=== PATIENT | female | born 1995 | race Two or more races ===

== ENCOUNTER 2019-01-07 21:48 | Emergency (ER) | payer OTHER ==
--- NOTE | 2019-01-07 22:12 | PDOC ---
History of Present Illness - General Stated Complaint: 9 WEEKS ,BLEEDING Time Seen by Provider: 01/07/19 22:12 History Source: Patient Exam Limitations: No Limitations - History of Present Illness Initial Comments: 23 year old female with no PMH, 9 weeks by date, A0 presented to ED for vaginal bleeding since yesterday, progressively getting worse today. Pt reported yesterday she had mild pelvic cramping and spotting. She reported that her bleeding and cramping increased today, and she saw passing of clots, prompting her to come to the ED. Pt denied lightheadedness, chest pain, shortness of breath, dysuria. She reported using 3-4 pads today, she soaked through one pad today, but then has been changing them every 3-4 hours, sometimes they are soaked and sometimes they are 1/2 full. OBGYN: Yefri VELAZQUEZ General: denied fever, chills, generalized weakness. HEENT: denied sore throat, rhinorrhea, ear pain. Cardiovascular: denied chest pain, palpitations, syncope, diaphoresis. Respiratory: denied shortness of breath, cough, sputum production, hemoptysis. Gastrointestinal: admitted to abdominal pain. denied nausea, vomiting, diarrhea , constipation, blood in stool. Genitourinary: admitted to vaginal bleeding. denied dysuria, increased urinary frequency, hematuria, urinary incontinence, flank pain. Back: denied back pain. Musculoskeletal: denied joint pain, muscle pain, joint swelling. Neurological: denied headache, dizziness, numbness, tingling, weakness. Integumentary: denied rash, laceration, abrasion. Hematologic/Lymphatic: denied bruising or bleeding. PE Constitutional: Well-nourished, Well-developed, appearing stated age. HEENT: head is normocephalic, atraumatic. EOMI. PERRLA. Neck: supple. Full ROM. Cardiovascular: regular heart rhythm. no murmurs. no pericardial friction rub. Respiratory: clear to auscultation bilaterally. no crackles, rhonchi or wheezing. no stridor. Gastrointestinal: soft, flat. suprapubic tenderness to palpation. normal bowel sounds. no rebound, guarding, masses. Extremities: peripheral pulses intact. no lower extremity edema. Neurological: CN 2-12 grossly intact. moves all four extremities. Psych: awake, alert, oriented x3. follows commands. answers questions appropriately. Pelvic: normal external genitalia. no adnexal tenderness bilaterally. severe pooling obstructing view of vaginal vault. cervix unable to be palpated or visualized. ED Treatment Course - LABORATORY CBC & Chemistry Diagram: 01/07/19 23:00 01/07/19 23:00 Medical Decision Making - Medical Decision Making 23 year old female with above PMH presented to ED for vaginal bleeding since yesterday associated with suprapubic cramping. Initial Vital Signs Temp Pulse Resp BP Pulse Ox 98.2 F 95 H 16 118/73 100 01/07/19 22:28 01/07/19 22:28 01/07/19 22:28 01/07/19 22:28 01/07/19 22:28 Afebrile. Borderline tachycardia. No tachypnea. No hypotension. No hypoxia on room air. Labs ordered: CBC, CMP, PT/PTT/INR, Beta-quant, T&S, UA/UC Imaging ordered: TVUS Medications ordered: normal saline bolus 1000 cc once 01/08/19 00:31 CBC WBC 9.4 K/mm3 (4.0-10.0) 01/07/19 23:00 RBC 4.22 M/mm3 (3.60-5.2) 01/07/19 23:00 Hgb 12.4 GM/dL (10.7-15.3) 01/07/19 23:00 Hct 37.6 % (32.4-45.2) 01/07/19 23:00 MCV 89.2 fl (80-96) 01/07/19 23:00 MCH 29.4 pg (25.7-33.7) 01/07/19 23:00 MCHC 32.9 g/dl (32.0-36.0) 01/07/19 23:00 RDW 12.9 % (11.6-15.6) 01/07/19 23:00 Plt Count 312 K/MM3 (134-434) 01/07/19 23:00 MPV 8.5 fl (7.5-11.1) 01/07/19 23:00 Absolute Neuts (auto) 5.8 K/mm3 (1.5-8.0) 01/07/19 23:00 Neutrophils % 61.7 % (42.8-82.8) 01/07/19 23:00 Lymphocytes % 27.0 % (8-40) 01/07/19 23:00 Monocytes % 8.0 % (3.8-10.2) 01/07/19 23:00 Eosinophils % 2.6 % (0-4.5) 01/07/19 23:00 Basophils % 0.7 % (0-2.0) 01/07/19 23:00 Nucleated RBC % 0 % (0-0) 01/07/19 23:00 No leukocytosis. No anemia. CMP Sodium 138 mmol/L (136-145) 01/07/19 23:00 Potassium 3.9 mmol/L (3.5-5.1) 01/07/19 23:00 Chloride 106 mmol/L (98-107) 01/07/19 23:00 Carbon Dioxide 25 mmol/L (21-32) 01/07/19 23:00 Anion Gap 7 MMOL/L (8-16) L 01/07/19 23:00 BUN 6.5 mg/dL (7-18) L 01/07/19 23:00 Creatinine 0.6 mg/dL (0.55-1.3) 01/07/19 23:00 Est GFR (CKD-EPI)AfAm 146.83 01/07/19 23:00 Est GFR (CKD-EPI)NonAf 126.68 01/07/19 23:00 Random Glucose 101 mg/dL (74-106) 01/07/19 23:00 Calcium 8.7 mg/dL (8.5-10.1) 01/07/19 23:00 Total Bilirubin 0.3 mg/dL (0.2-1) 01/07/19 23:00 AST 14 U/L (15-37) L 01/07/19 23:00 ALT 11 U/L (13-61) L 01/07/19 23:00 Alkaline Phosphatase 102 U/L (45-117) 01/07/19 23:00 Total Protein 7.1 g/dl (6.4-8.2) 01/07/19 23:00 Albumin 3.4 g/dl (3.4-5.0) 01/07/19 23:00 No electrolyte abnormalities. No ERNESTO. No transaminitis. US report: Referring Physician: RAPHAEL ROMAN Patient Name: TRACIE BURCIAGA THIS IS A PRELIMINARY REPORT FROM [facility] DATE OF SERVICE: 2019-01-07 23:21:55 IMAGES: 71 EXAM: TV TA US PREG WITH DOPPLER HISTORY: 9 weeks with vaginal bleeding. COMPARISON: None. FINDINGS: Anteverted uterus with thickened endometrium measuring up to 2.3 cm in the mid uterine body. Heterogeneous endometrium with minimal color Doppler. No intrauterine gestation. Trace free fluid in the cul-de-sac. Right ovary measuring 4.9 x 2.2 x 2.6 cm. Left ovary not visualized. No abnormal adnexal masses noted. Color Doppler is demonstrated in both adnexa. Arterial and venous positive Doppler was demonstrated in the right ovary. IMPRESSION: 1. Thickened heterogeneous endometrium without intrauterine gestational sac. 2. Unremarkable right ovary. Left ovary not visualized. THIS DOCUMENT HAS BEEN ELECTRONICALLY SIGNED Esdras Min MD 01/08/2019 00:11 EST 01/08/19 00:38 Urine Test Results Urine Color Yellow 01/07/19 23:00 Urine Appearance Clear 01/07/19 23:00 Urine pH 5.5 (5.0-8.0) 01/07/19 23:00 Ur Specific [place] 1.029 (1.010-1.035) 01/07/19 23:00 Urine Protein Negative (NEGATIVE) 01/07/19 23:00 Urine Glucose (UA) Negative (NEGATIVE) 01/07/19 23:00 Urine Ketones Trace (NEGATIVE) H 01/07/19 23:00 Urine Blood 2+ (NEGATIVE) H 01/07/19 23:00 Urine Nitrite Negative (NEGATIVE) 01/07/19 23:00 Urine Bilirubin Negative (NEGATIVE) 01/07/19 23:00 Ur Leukocyte Esterase Negative (NEGATIVE) 01/07/19 23:00 Negative for UTI. Hematuria likely contaminate from vaginal blood. Blood Type, Rh (Baby) Blood Type O POSITIVE 01/07/19 23:00 No indication for Rhogam. Pt likely having active spontaneous . Pt counseled. Pt instructed to F/U with OBGYN, given return precautions. Pt discharged. Discharge - Discharge Information Problems reviewed: Yes Clinical Impression/Diagnosis: Vaginal bleeding affecting early Condition: Stable Disposition: HOME - Admission No - Follow up/Referral Referrals: Bryan Asif MD [Staff Physician] - - Patient Discharge Instructions Patient Printed Discharge Instructions: DI for Miscarriage, DI for Vaginal Bleeding Additional Instructions: Follow up with your OBGYN within 3 days regarding your Emergency Room visit. Your care is not complete until you follow up. Bring all paperwork given to you today to your appointment. Return to the Emergency Department for increasing pain, chest pain, shortness of breath, vomiting, lightheadedness, passing out, palpitations, fever, or any other new, worsening or concerning symptoms. Take Tylenol over the counter for pain. Take as advised on label. - Post Discharge Activity Work/Back to School Note: Back to Work
[2019-01-07 22:44] VITALS: BP 118/73; PULSE 95; TEMP 98.2; BMI 27.4
[2019-01-07] MEDS ORDERED: SODIUM CHLORIDE 1,000 ML IV STA (22:53)
[2019-01-08 00:01] LABS: BASO % 0.7 % (0-2.0); EOS % 2.6 % (0-4.5); HEMATOCRIT 37.6 % (32.4-45.2); HEMOGLOBIN 12.4 GM/dL (10.7-15.3); MCH 29.4 pg (25.7-33.7); MCHC 32.9 g/dl (32.0-36.0); MEAN CELL VOLUME 89.2 fl (80-96); MEAN PLT VOLUME 8.5 fl (7.5-11.1); NEUT % 61.7 % (42.8-82.8); PLATELET COUNT 312 K/MM3 (134-434); RBC 4.22 M/mm3 (3.60-5.2); RDW 12.9 % (11.6-15.6); WHITE BLOOD COUNT 9.4 K/mm3 (4.0-10.0)
[2019-01-08 00:28] LABS: ALBUMIN 3.4 g/dl (3.4-5.0); BILIRUBIN,TOTAL 0.3 mg/dL (0.2-1); BLOOD UREA NITROGEN 6.5 mg/dL (7-18); CALCIUM 8.7 mg/dL (8.5-10.1); CREATININE 0.6 mg/dL (0.55-1.3); POTASSIUM 3.9 mmol/L (3.5-5.1); TOT PROT 7.1 g/dl (6.4-8.2)
[2019-01-08 00:32] LABS: INR 0.98 (0.83-1.09); PROTHROMBIN TIME (PATIENT) 11.6 SEC (9.7-13.0)
[2019-01-08 00:36] LABS: EPI CELLS 4.1 /HPF (0-5/HPF); HYALINE CASTS 8 /lpf (0-8); PH,URINE 5.5 (5.0-8.0); URINE APPEARANCE CLEAR; URINE BACTERIA 24.1 /hpf (NEGATIVE); URINE BILIRUBIN NEGATIVE (NEGATIVE); URINE COLOR YELLOW; URINE GLUCOSE (UA) NEGATIVE (NEGATIVE); URINE KETONE TRACE (NEGATIVE); URINE LEUK ESTERASE NEGATIVE (NEGATIVE); URINE NITRITE NEGATIVE (NEGATIVE); URINE PROTEIN NEGATIVE (NEGATIVE); URINE RBC 39 /hpf (0-4); URINE UROBILINOGEN 0.2 mg/dL (0.2-1.0); URINE WBC 4 /hpf (0-5)
--- NOTE | 2019-01-08 00:43 | PDOC ---
Documentation entered by Tarsha Conley SCRIBE, acting as scribe for Eugenio Foster MD. Eugenio Foster MD: This documentation has been prepared by the nilsonibeJarvis Lincy, SCRIBE, under my direction and personally reviewed by me in its entirety. I confirm that the documentation accurately reflects all work, treatment, procedures, and medical decision making performed by me. Attending Attestation - Resident Resident Name: Michaela Mckeon - ED Attending Attestation I have performed the following: I have examined & evaluated the patient, The case was reviewed & discussed with the resident, I agree w/resident's findings & plan, Exceptions are as noted - HPI HPI: 01/08/19 00:56 23 year old female with no PMH, 9 weeks by date, A0 presented to ED for vaginal bleeding since yesterday - Physicial Exam PE: 01/08/19 00:56 Vitals: Triage Vital signs reviewed General Appearance: No acute distress, well nourished well developed, Abdomen: Soft, non distended, normal bowel sounds, non tender to palpation Extremities: Full range of motion to all extremities, no cyanosis, clubbing, or edema Skin: Warm and dry, no rashes or lesions, no rash, - Medical Decision Making 01/08/19 00:39 EXAM: TV TA US PREG WITH DOPPLER FINDINGS: Anteverted uterus with thickened endometrium measuring up to 2.3 cm in the mid uterine body. Heterogeneous endometrium with minimal color Doppler. No intrauterine gestation. Trace free fluid in the cul-de-sac. Right ovary measuring 4.9 x 2.2 x 2.6 cm. Left ovary not visualized. No abnormal adnexal masses noted. Color Doppler is demonstrated in both adnexa. Arterial and venous positive Doppler was demonstrated in the right ovary. IMPRESSION: 1. Thickened heterogeneous endometrium without intrauterine gestational sac. 2. Unremarkable right ovary. Left ovary not visualized. THIS DOCUMENT HAS BEEN ELECTRONICALLY SIGNED Esdras Min MD 01/08/2019 00:11 EST 01/08/19 00:56 Transvaginal ultrasound demonstrates likely completed miscarriage will have patient follow-up with [facility] this week patient's blood type a positive no indication for RhoGam at this time Findings, need for follow-up and strict return instructions discussed with patient.
[2019-01-08 23:36] LABS: URINE CRYSTALS FEW /hpf
== END 2019-01-08 01:50 | disposition home or self-care (01) ==
LOC: JER 21:48
DX: O26.891 Other specified pregnancy related conditions, first trimester (principal); O20.8 Other hemorrhage in early pregnancy; Z3A.09 9 weeks gestation of pregnancy
CPT/HCPCS: 36415; 76817-TC; 80053; 81003; 84702; 85025; 85610; 85730; 86850; 86900; 86901; 87077; 87086; 99281-25; J7030